=== PATIENT | male | born 1950 | race Caucasian/White ===

== ENCOUNTER 2021-11-13 09:03 | Day surgery (SDC) | payer MEDICARE, OTHER ==
[~2021-11-13] VITALS: Ht 183 cm; Wt 111.0 kg
[~2021-11-13 09:03] MED LIST: CYMBALTA60 MG PO; DEMADEX20 MG PO; DICLOFENAC SODI75 MG PO; DULOXETINE HCL30 MG PO; GABAPENTIN600 MG PO; LISINOPRIL20 MG PO; MAG-OXIDE 400M400 MG PO; NARCAN4 MG; OXYCODONE-ACET1 EACH PO; PANTOPRAZOLE SO40 MG PO; POTASSIUM99 M3 PO; VOLTAREN ARTHRI20 GM TOP
--- NOTE | 2021-11-13 16:22 | NUR ---
[facility] TO DELIVER A RW UPON DISHCARGE. [facility] WILL PROVIDE THERAPY SERVICES TO PATIENT. HE WILL DISCHARGE HOME. PT SIGNED CHOICE FORM AND COPY GIVEN.
[2021-11-14 06:16] LABS: BASOPHIL 0.1 % (0-2); EOSINOPHIL 0 % (0-7); HCT 27.3 % (42.0-52.0); HGB 8.7 g/dl (13.2-18.0); LYMPHOCYTE 5.4 % (15-48); MCH 30.5 pg (25.0-31.0); MCHC 31.9 g/dL (32.0-36.0); MCV 95.8 fL (78.0-100.0); MONOCYTE 6.5 % (0-12); MPV 9.7 fL (6.0-9.5); NEUTROPHIL 87.4 % (41-80); NRBC 0; PLT 195 K/uL (150-400); RBC 2.85 M/uL (4.70-6.00); RDW 12.5 % (11.5-14.0); WBC 15.6 K/uL (4.0-10.5)
[2021-11-14 06:33] LABS: BUN/CREAT RATIO (CALC) 23.1 RATIO; CREATININE 1.34 mg/dL (0.67-1.17); POTASSIUM 4.9 mmol/L (3.5-5.1)
[2021-11-14] MEDS ORDERED: XARELTO10 MG PO (09:04)
[2021-11-14] MEDS ORDERED: OXYCODONE-ACET1 EAC1 PO (09:04)
[2021-11-14] MEDS ORDERED: FEOSOL325 MG PO (09:04)
== END 2021-11-14 12:14 | disposition home health service (06) ==
LOC: FAS 09:03 → FMS 13:31 → FAS 11-14 12:14
PROVIDERS: Legal Medicine
DX: M17.12 Unilateral primary osteoarthritis, left knee (principal); M21.162 Varus deformity, not elsewhere classified, left knee; G89.18 Other acute postprocedural pain; I10 Essential (primary) hypertension; F32.A Depression, unspecified; G47.30 Sleep apnea, unspecified; Z79.899 Other long term (current) drug therapy
CPT/HCPCS: 36415; 73560; 80048; 85025; 86850; 86900; 86901; 94010; 97110; 97162; 97166; 97530-GP; 97535; C1713; C1776; J0171; J0697; J1100; J1170; J1885; J2250; J2270; J2370; J2405; J2704; J2795; J3010; J7120